=== PATIENT | male | born 1950 | race Caucasian/White ===

== ENCOUNTER → 2021-07-13 | Outpatient (CLI) | payer MEDICARE, BC ==
[~2021-07-13] MED LIST: ACID CONTROL150 MG PO; ANTIVERT 25MG T25 MG PO; ASPIR 8181 MG PO; FENOFIBRATE145 MG PO; FISH OIL 1,0001 EACH PO; GLUCOTROL XL10 MG PO; LANTUS SOL100 UNIT/1 SQ; LOTENSIN TAB 1010 MG PO; NAPROXEN500 MG PO; NORVASC 5 MG TAB5 MG PO; PRAVASTATIN SOD80 MG PO; PROPRANOLOL HCL80 MG PO; STIOLTO RESPIMAT INH; VENTOLIN HFA 66.7 GM INH; VITAMIN D250000 UNIT PO; ZETIA10 MG PO
== END ==
LOC: CT 09:43
DX: C34.90 Malignant neoplasm of unspecified part of unspecified bronchus or lung (principal); Z90.2 Acquired absence of lung [part of]
CPT/HCPCS: 36415; 71260; 82565; Q9967